=== PATIENT | female | born 1990 | race American Indian/Alaskan Native ===

== ENCOUNTER 2016-12-15 10:03 | Inpatient (IN) | payer MEDICAID ==
--- NOTE | 2016-12-15 10:19 | History and Physical Report ---
History of Present Illness Date of examination: 12/15/16 Date of admission: 12/15/16 10:09 Chief complaint: Labor History of present illness: Pt is a 26yo BF EDC 01/04/17; EGA 37 1/7 weeks presents to L&D complaining of RUC's q 3-4 mins. [facility] since 18 weeks and course has been unremarkable except for fetus with hyperechoic bowel loops for which she was seen by [facility]. records are available but GBS is unknown. 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 Family/Genetic History: diabetes, hypertension, stroke Social history: no significant social history, single - Obstetrical History Expected Date of Delivery: 01/04/17 Actual Gestation: 37 Week(s) 1 Day(s) : 4 Medications and Allergies Allergies Allergy/AdvReac Type Severity Reaction Status Date / Time No Known Allergies Allergy Unverified 01/22/14 11:22 Home Medications Medication Instructions Recorded Confirmed Last Taken Type No Known Home Medications [No 12/15/16 12/15/16 Unknown History Reported Home Medications] Active Meds: Active Medications Butorphanol Tartrate (Stadol) 2 mg IV Q2H PRN PRN Reason: Pain , Severe (7-10) Ephedrine Sulfate (Ephedrine Sulfate) 10 mg IV Q2M PRN PRN Reason: Hypotension Stop: 12/15/16 10:20 Fentanyl (Sublimaze) 100 mcg IV Q2H PRN PRN Reason: Labor Pain Ampicillin Sodium (Polycillin/Ns 1 Gm/50 Ml) 1 gm in 50 mls @ 100 mls/hr IV Q4HR KEZIA PRN Reason: Protocol Ampicillin Sodium (Polycillin/Ns 2 Gm/100 Ml) 2 gm in 100 mls @ 100 mls/hr IV ONCE ONE PRN Reason: Protocol Stop: 12/15/16 11:14 Lactated Ringer's (Lactated Ringers) 1,000 mls @ 125 mls/hr IV DIRECT KEZIA Oxytocin/Sodium Chloride (Pitocin/Ns 20 Unit/1000ml Drip) 20 units in 1,000 mls @ 125 mls/hr IV DIRECT KEZIA Oxytocin/Sodium Chloride (Pitocin/Ns 30 Unit/500ml) 30 units in 500 mls @ 1 mls /hr IV TITR KEZIA; 1 MILLIUNITS/MIN PRN Reason: Protocol Oxytocin/Sodium Chloride (Pitocin/Ns 30 Unit/500ml) 30 units in 500 mls @ 4 mls /hr IV TITR KEZIA PRN Reason: Protocol Lidocaine (Xylocaine 2%) 20 ml INFILTRATI ONCE ONE Stop: 12/15/16 10:16 Mineral Oil (Mineral Oil) 30 ml PO QHS PRN PRN Reason: Constipation Naloxone HCl (Narcan 0.4 Mg/1 Ml) 0.1 mg IV Q2MIN PRN PRN Reason: Res Rate </= 8 or 02 SAT < 92% Ondansetron HCl (Zofran) 4 mg IV Q8H PRN PRN Reason: Nausea And Vomiting Terbutaline Sulfate (Brethine) 0.25 mg SUB-Q ONCE PRN PRN Reason: Hyperstimulation/Hypertonicity Stop: 12/15/16 10:16 Terbutaline Sulfate (Brethine) 0.25 mg IVP ONCE PRN PRN Reason: Hyperstimulation/Hypertonicity Stop: 12/15/16 10:16 Review of Systems All systems: negative - Physical Exam Breasts: Positive: deferred Cardiovascular: Regular rate Lungs: Positive: Clear to auscultation Abdomen: Positive: normal appearance Genitourinary (Female): Positive: normal external genitalia Vagina: Positive: normal moisture Uterus: Positive: enlarged Extremities: Positive: normal - Obstetrical FHR: category 1 Uterine Contraction Monitor Mode: External Uterine Contraction Pattern: Regular Uterine Tone Measurement Phase: Contraction Uterine Contraction Intensity: Moderate Results Result Diagrams: 12/15/16 10:15 All other labs normal. Assessment and Plan - Patient Problems (1) 37 weeks gestation of Onset Date: 12/15/16 Current Visit: Yes Status: Acute Plan to address problem: A: IUP @ 37 1/7 weeks in labor GBS unknown P: Admit to L&D for expectant vaginal delivery IV Ampicillin (2) Active labor at term Onset Date: 12/15/16 Current Visit: Yes Status: Acute
[2016-12-15] MEDS ORDERED: SUBLIMAZE IV PRN (10:30)
[2016-12-15] MEDS ORDERED: STADOL IV PRN (10:30)
[2016-12-15] MEDS ORDERED: ZOFRAN IV PRN ×2 (11:00→13:09)
[2016-12-15] MEDS ORDERED: PITOCin/NS 30 UNIT/500ML 30 UNITS/500 ML BAG IV SCH ×2 (11:00)
[2016-12-15] MEDS ORDERED: POLYCILLIN/NS 2 GM/100 ML 2 GM/100 ML BAG IV ONE ×2 (11:00→11:55)
[2016-12-15] MEDS ORDERED: MINERAL OIL PO PRN ×2 (11:00→11:55)
[2016-12-15] MEDS ORDERED: LACTATED RINGERS 1,000 ML IV SCH ×2 (11:00→12:00)
[2016-12-15] MEDS ORDERED: PITOCin/NS 20 UNIT/1000ML DRIP 20 UNITS/1,000 ML BAG IV SCH ×3 (11:00→14:00)
[2016-12-15] MEDS ORDERED: XYLOCAINE 2% INFILTRATI ONE ×2 (11:00→11:55)
[2016-12-15] MEDS ORDERED: NARCAN 0.4 MG/1 ML IV PRN (11:00)
[2016-12-15] MEDS ORDERED: BRETHINE SUB-Q PRN ×2 (11:00→11:55)
[2016-12-15] MEDS ORDERED: ePHEDrine SULFATE IV PRN ×2 (11:00→12:00)
[2016-12-15] MEDS ORDERED: BRETHINE IVP PRN ×2 (11:00→11:55)
[2016-12-15 11:24] LABS: Mean Corpuscular HGB Conc 30 % (30-34); Platelet Count 225 K/mm3 (140-440); Red Blood Count 4.39 M/mm3 (3.65-5.03)
[2016-12-15 11:26] LABS: Hematocrit 28.3 % (30.3-42.9); Hemoglobin 8.4 gm/dl (10.1-14.3); Mean Corpuscular Hemoglobin 19 pg (28-32); Mean Corpuscular Volume 65 fl (79-97); Red Cell Distribution Width 27.6 % (13.2-15.2)
[2016-12-15] MEDS ORDERED: MOTRIN PO PRN (12:48)
[2016-12-15] MEDS ORDERED: TYLENOL PO PRN (13:09)
[2016-12-15] MEDS ORDERED: NORCO 5/325 PO PRN (13:09)
[2016-12-15] MEDS ORDERED: PHENERGAN PO PRN (13:09)
[2016-12-15] MEDS ORDERED: DULCOLAX PR PRN (13:09)
[2016-12-15] MEDS ORDERED: MILK OF MAGNESIA PO PRN (13:09)
[2016-12-15] MEDS ORDERED: BENADRYL PO PRN (13:09)
[2016-12-15] MEDS ORDERED: TUCKS PAD TP PRN (13:09)
[2016-12-15] MEDS ORDERED: PHENERGAN PR PRN (13:09)
[2016-12-15] MEDS ORDERED: LANSINOH TP PRN (13:09)
--- NOTE | 2016-12-15 13:15 | Procedure Note ---
OB Delivery Note - Delivery Date of Delivery: 12/15/16 Surgeon: BELGICA OMALLEY Estimated blood loss: 100cc - Vaginal Delivery presentation: vertex Delivery position: OA Intrapartum events: precipitous labor- <3hr Delivery induction: none Delivery augmentation: rupture of membranes Delivery monitor: external FHT, external uterine Route of delivery: Delivery placenta: spontaneous Delivery cord: 3 umbilical vessels Episiotomy: none Delivery laceration: none Anesthesia: intravenous - A at 1 minute: 8 at 5 minutes: 9 Infant Gender: Male (2786gms)
[2016-12-15 13:57] LABS: Mean Corpuscular HGB Conc 29 % (30-34); Platelet Count 215 K/mm3 (140-440); Red Blood Count 4.54 M/mm3 (3.65-5.03)
[2016-12-15] MEDS ORDERED: SODIUM CHLORIDE FLUSH SYRINGE 10 ML IV NR (14:00)
[2016-12-15 14:05] LABS: Hematocrit 29.9 % (30.3-42.9); Hemoglobin 8.6 gm/dl (10.1-14.3); Mean Corpuscular Hemoglobin 19 pg (28-32); Mean Corpuscular Volume 66 fl (79-97); Red Cell Distribution Width 28.3 % (13.2-15.2)
[2016-12-15] MEDS: MOTRIN PO SCH ×2 (14:25→21:15)
[2016-12-15] MEDS ORDERED: POLYCILLIN/NS 1 GM/50 ML 1 GM/50 ML BAG IV SCH (15:00)
[2016-12-15] MEDS: FEOSOL PO SCH (21:15)
[2016-12-15] MEDS: COLACE PO SCH (21:15)
[2016-12-16 01:11] LABS: Hematocrit 25.8 % (30.3-42.9); Hemoglobin 7.6 gm/dl (10.1-14.3)
[2016-12-16] MEDS: MOTRIN PO SCH ×4 (02:44→20:21)
[2016-12-16] MEDS ORDERED: BOOSTRIX IM ONE (06:00)
[2016-12-16] MEDS ORDERED: M-M-R II VACCINE SUB-Q ONE (06:00)
--- NOTE | 2016-12-16 09:25 | Progress Note ---
Assessment and Plan PPD# 1 s/p -Doing well P: -Continue routine post care -Anticipate discharge in 24-48 hours - Patient Problems (1) Status post normal vaginal delivery Current Visit: No Status: Acute Subjective - Subjective Date of service: 12/16/16 Principal diagnosis: PPD# 1 Interval history: Patient seen and examined, stable doing well. No issues or complaints Patient reports: appetite normal, voiding normally, pain well controlled, ambulating normally, no dizzy ambulation, no nauseated : doing well Objective - Vital Signs Latest vital signs: Vital Signs Temp Pulse Resp BP BP Pulse Ox 12/16/16 08:12 97.6 F 78 14 108/72 12/16/16 00:00 98.1 F 79 115/75 12/15/16 20:05 98.0 F 74 20 115/68 12/15/16 16:25 98.0 F 65 19 123/76 12/15/16 14:00 98.6 F 73 18 122/68 100 12/15/16 13:30 71 124/77 12/15/16 13:23 66 120/76 12/15/16 13:08 68 129/68 12/15/16 12:53 84 133/85 12/15/16 12:33 87 125/65 12/15/16 11:41 87 94 12/15/16 11:40 82 100 12/15/16 11:35 92 H 100 12/15/16 10:43 76 L 12/15/16 10:42 103 H 99 12/15/16 10:37 80 100 12/15/16 10:30 67 86 12/15/16 10:28 97.8 F 98 H 18 126/76 99 Intake and Output 12/15/16 12/16/16 12/16/16 22:59 06:59 14:59 Intake Total 740 120 Output Total 400 300 Balance 340 -180 Intake: IV 500 PITOCin/NS 20 UNIT/1000ML 500 DRIP 20 units In 1,000 ml @ 125 mls/hr IV DIRECT KEZIA Rx#:[id number] Oral 240 120 Output: Urine 400 300 Void 400 300 Other: Total, Intake Amount 120 120 Total, Output Amount 400 300 - Exam Abdomen: Present: normal appearance, soft. Absent: distention, tenderness, guarding, rigidity - Labs Labs: Abnormal lab results 12/15/16 12/15/16 12/16/16 Range/Units 10:15 13:07 00:34 WBC 16.0 H (4.5-11.0) K/mm3 Hgb 8.4 L 8.6 L 7.6 L (10.1-14.3) gm/dl Hct 28.3 L 29.9 L 25.8 L (30.3-42.9) % MCV 65 L 66 L (79-97) fl MCH 19 L 19 L (28-32) pg MCHC 29 L (30-34) % RDW 27.6 H 28.3 H (13.2-15.2) %
--- NOTE | 2016-12-16 10:24 | Progress Note ---
Assessment and Plan A: PP Day #1 Severe Anemia (Asymptomatic) P: Follow Routine Orders Infed 100mg IM x 1 dose Continue PO FESO4 Depo Provera prior to discharge Plans Nexplanon at 6 Weeks RTO in One Week for Circumcision RTO in 6 Weeks for Exam Subjective - Subjective Date of service: 12/16/16 Principal diagnosis: PPD# 1 Patient reports: appetite normal, voiding normally, pain well controlled, flatus , other (Denies s/s of anemia) [place]: doing well Objective - Vital Signs Latest vital signs: Vital Signs Temp Pulse Resp BP BP Pulse Ox 12/16/16 08:12 97.6 F 78 14 108/72 12/16/16 00:00 98.1 F 79 115/75 12/15/16 20:05 98.0 F 74 20 115/68 12/15/16 16:25 98.0 F 65 19 123/76 12/15/16 14:00 98.6 F 73 18 122/68 100 12/15/16 13:30 71 124/77 12/15/16 13:23 66 120/76 12/15/16 13:08 68 129/68 12/15/16 12:53 84 133/85 12/15/16 12:33 87 125/65 12/15/16 11:41 87 94 12/15/16 11:40 82 100 12/15/16 11:35 92 H 100 12/15/16 10:43 76 L 12/15/16 10:42 103 H 99 12/15/16 10:37 80 100 12/15/16 10:30 67 86 12/15/16 10:28 97.8 F 98 H 18 126/76 99 Intake and Output 12/15/16 12/16/16 12/16/16 22:59 06:59 14:59 Intake Total 740 120 Output Total 400 300 Balance 340 -180 Intake: IV 500 PITOCin/NS 20 UNIT/1000ML 500 DRIP 20 units In 1,000 ml @ 125 mls/hr IV DIRECT KEZIA Rx#:[id number] Oral 240 120 Output: Urine 400 300 Void 400 300 Other: Total, Intake Amount 120 120 Total, Output Amount 400 300 - Exam Breasts: Present: normal Cardiovascular: Present: Regular rate Lungs: Present: Clear to auscultation, Normal air movement Abdomen: Present: normal appearance, soft, normal bowel sounds Uterus: Present: normal, firm, fundal height below umbilicus Extremities: Present: normal - Labs Labs: Abnormal lab results 12/15/16 12/15/16 12/16/16 Range/Units 10:15 13:07 00:34 WBC 16.0 H (4.5-11.0) K/mm3 Hgb 8.4 L 8.6 L 7.6 L (10.1-14.3) gm/dl Hct 28.3 L 29.9 L 25.8 L (30.3-42.9) % MCV 65 L 66 L (79-97) fl MCH 19 L 19 L (28-32) pg MCHC 29 L (30-34) % RDW 27.6 H 28.3 H (13.2-15.2) %
--- NOTE | 2016-12-16 10:25 | Discharge Summary ---
Providers - Providers Date of Admission: 12/15/16 10:09 Date of discharge: 12/17/16 Attending physician: BELGICA SAVAGE MD Primary care physician: BELGICA SAVAGE MD Hospitalization Reason for admission: active labor Delivery: Episiotomy: none Laceration: none Other procedures: none complications: none Discharge diagnosis: IUP at term delivered [place] baby: male Condition at discharge: Good Disposition: DC-01 TO HOME OR SELFCARE Plan - Discharge Medications Prescriptions: Ibuprofen [Motrin 600 MG tab] 600 mg PO Q8H PRN #30 tablet PRN Reason: Pain Multivitamin with Iron [Multivitamins with Iron] 1 each PO DAILY #30 tablet - Provider Discharge Summary Activity: routine, no sex for 6 weeks, no heavy lifting 4 weeks Diet: routine Instructions: routine Additional instructions: [] Smoking cessation referral if applicable(refer to patient education folder for contact #) [] Refer to [facility]'s [facility] Booklet Call your doctor immediately for: * Fever > 100.5 * Heavy vaginal bleeding ( >1 pad per hour) * Severe persistent headache * Shortness of breath * Reddened, hot, painful area to leg or breast * Drainage or odor from incision. * Keep incision clean and dry at all times and follow doctor's instructions regarding bathing/showering - Follow up plan Follow up: JAMAL MCPHERSON CNM [Advanced Practice Nurse] - 6 Weeks
[2016-12-16] MEDS: COLACE PO SCH ×2 (10:44→21:49)
[2016-12-16] MEDS: FEOSOL PO SCH ×2 (10:44→21:49)
[2016-12-16] MEDS: PRENATAL VITAMIN PO SCH (10:44)
[2016-12-16] MEDS ORDERED: INFED IM ONE (13:00)
[2016-12-16] MEDS ORDERED: DEPO-PROVERA (CONTRACEPTION) IM ONE (13:00)
[2016-12-17] MEDS: MOTRIN PO SCH ×3 (04:41→13:20)
[2016-12-17] MEDS: FEOSOL PO SCH (09:34)
[2016-12-17] MEDS: COLACE PO SCH (09:34)
[2016-12-17] MEDS: PRENATAL VITAMIN PO SCH (09:34)
[2016-12-17 17:59] VITALS: BP 115/71
== END 2016-12-17 17:45 | disposition home or self-care (01) | DRG 775 ==
LOC: TRG 10:03 → LD 10:09 → OB 14:15
PROVIDERS: ADMIT Obstetrics & Gynecology; ATTEND Obstetrics & Gynecology
PROC: 10E0XZZ Delivery of Products of Conception, External Approach (ICD-10-PCS; principal; 2016-12-15)
PROC: 3E0234Z Introduction of Serum, Toxoid and Vaccine into Muscle, Percutaneous Approach (ICD-10-PCS; 2016-12-15)
DX: O62.3 Precipitate labor (principal); Z3A.37 37 weeks gestation of pregnancy; Z37.0 Single live birth; O90.81 Anemia of the puerperium; D64.9 Anemia, unspecified; Z82.3 Family history of stroke; Z82.49 Family history of ischemic heart disease and other diseases of the circulatory system; Z83.3 Family history of diabetes mellitus; Z23 Encounter for immunization
CPT/HCPCS: 36415; 85014; 85018; 85027; 86592; 86850; 86900; 86901; 99211; A6250; G0463; J0290; J1050; J1750; J2590; J3010; J7120

== ENCOUNTER 2019-04-19 18:19 | Outpatient (CLI) | payer MEDICAID ==
[2019-04-19] MEDS ORDERED: LACTATED RINGERS 1,000 ML IV SCH (19:00)
[2019-04-19 23:49] VITALS: BP 113/60
== END 2019-04-19 20:13 | disposition home or self-care (01) ==
LOC: TRG 18:19
PROVIDERS: ATTEND Obstetrics & Gynecology
DX: O47.03 False labor before 37 completed weeks of gestation, third trimester (principal); Z3A.31 31 weeks gestation of pregnancy
CPT/HCPCS: 59025